=== PATIENT | female | born 1965 | race Caucasian/White ===

== ENCOUNTER 2016-07-27 15:06 | Emergency (ER) ==
[2016-07-27 15:14] VITALS: BP 167/98; TEMP 98.4; BMI 33.9
[2016-07-27] MEDS ORDERED: DUONEB NEB STA (15:20)
--- NOTE | 2016-07-27 15:50 | CT ---
EXAM: CT chest without contrast HISTORY: Cough TECHNIQUE: Multi-slice transaxial helical. Coronal and sagital reformations were performed. COMPARISON: Chest radiograph 05/28/2016 FINDINGS: The heart is normal in size. Bilateral perihilar calcified granulomas are present. Mediastinal redd cified granulomas are also present. A subcarinal lymph node is mildly enlarged measuring up to 1.2 cm in diameter. Visualized thyroid appears unremarkable. There is no axillary adenopathy. The gallbladder has been removed. Calcified granulomas are present within the spleen. The upper abdomen otherwise appears unremarkable within the confines of a noncontrast exam. Mild bilateral acromioclavicular osteoarthr itis is present. The thoracic spine appears grossly unremarkable. The minimal emphysematous changes of the bilateral upper lung zones is present. A 5 mm left lower l obe pulmonary nodule is present. Subtle patchy airspace opacities are present within the left lung base. Calcified granulomas are present within the bilateral lungs. IMPRESSION: 1. Mild patchy airspace opacities in the left lung base. Differential includes atelectasis or mild infectious infiltrates. 2. 5 mm left lower lobe pulmonary nodule. Recommend follow-up per Fleischner criteria. 3. Minimal pulmonary emphysema. 4. Nonspecific mildly enlarged subcarinal lymph node. 5. Other age-related changes as above. Comment: Fleischner Society Recommendations on Incidental Pulmonary Nodule Follow-up: -measurements are for average length and width, non solid (ground glass) or partly solid nodules may require longer follow-up. Low risk patient: (minimal or absent known risk factors) <=4mm- no follow up needed >4-6mm- 12 mo, >6-8mm- initial at 6-12 mo, then 18-24 mo if no change >8mm- follow up CT at 3, 9, 24 mo, dynamic thin slice contrast CT, PET and/or biopsy High risk patient: (history of smoking or other risk factors) <=4mm- follow up CT at 12 mo >4-6mm- initial CT at 6-12 mo then 18-24 mo if no change >6-8mm- initial CT at 3-6, 9-12 then 18-24 mo >8mm- same as low risk
[2016-07-27] MEDS ORDERED: DECADRON 4 MG/ML SDV IM STA (16:22)
[2016-07-27] MEDS ORDERED: LIDOCAINE 1 % AMP 5 ML (SUTURES) IM STA (16:22)
[2016-07-27] MEDS ORDERED: ROCEPHIN IM STA (16:22)
--- NOTE | 2016-07-27 16:37 | ED.PDOC ---
General ED Provider: Dr. BOBBY MCKEON Chief Complaint: Respiratory Complaint Stated Complaint: COUGH, CONGESTION Time Seen by Physician: 15:10 Mode of Arrival: Walk-In Information Source: Patient Exam Limitations: No limitations Primary Care Provider: [facility] Nursing and Triage Documentation Reviewed and Agree: Yes Respiratory Complaint Exam - Respiratory Complaint/Exam Symptoms Are: Still present Timing: Constant Initial Severity: Mild Current Severity: Mild Location: Throat, Chest Character: Reports: Non-productive cough Aggravating: Reports: None Alleviating: Reports: Spontaneous resolution Associated Signs and Symptoms: Denies: Rapid breathing, Dyspnea, Fever, Chills, Chest pain, Pleuritic chest pain, Wheezing, Hemoptysis, Dizziness, Calf pain, Calf swelling, Edema, URI, Nasal congestion, Hoarseness, Sinus discomfort, Vomiting, Sore throat, Weight loss, Decreased oral intake, Increased thirst, Increased appetite, Increased urination Related History: Reports: Similar episode History of Healthcare-Acquired Pneumonia: No Related Surgical History: Reports: None Pulmonary Embolism Risk Factors: None Cardiac Risk Factors: Reports: None Pseudomonas Risk Factors: Reports: None Tuberculosis Risk Factors: Reports: None Status Asthmaticus Risk Factors: Reports: None Home Oxygen Use: No Recent Stress Test: No Recent Echo/LV Function: No Current Antibiotic Use: No Current Asthma Medication Use: No Respiratory Distress: None Inadequate Respiratory Effort: No Dysphagia Present: No Stridor Present: No JVD Present: No Retractions: Not Present Review of Systems - Review Of Systems Constitutional: Reports: No symptoms Eyes: Reports: No symptoms Ears, Nose, Mouth, Throat: Reports: No symptoms Respiratory: Reports: Cough, Wheezing Cardiac: Reports: No symptoms GI: Reports: No symptoms : Reports: No symptoms Musculoskeletal: Reports: No symptoms Skin: Reports: No symptoms Neurological: Reports: No symptoms Endocrine: Reports: No symptoms Hematologic/Lymphatic: Reports: No symptoms All Other Systems: Reviewed and Negative Past Medical History - Past Medical History Previously Healthy: Yes Endocrine: Reports: None Cardiovascular: Reports: None Respiratory: Reports: None Hematological: Reports: None Gastrointestinal: Reports: None Genitourinary: Reports: None Neuro/Psych: Reports: None Musculoskeletal: Reports: None Cancer: Reports: None Last Menstrual Period: n/a - Surgical History General Surgical History: Reports: Unknown - Family History Family History: Reports: Unknown - Social History Smoking Status: Former smoker Hx Substance Use: No Alcohol Screening: Occasionally Physical Exam - Physical Exam Appearance: Well-appearing, No pain distress, Well-nourished Eyes: LENNOX, EOMI, Conjunctiva clear ENT: Ears normal, Nose normal, Oropharynx normal Respiratory: Rhonchi, Wheezes Cardiovascular: RRR, Pulses normal, No rub, No murmur GI/: Soft, Nontender, No masses, Bowel sounds normal, No Organomegaly Musculoskeletal: Normal strength, ROM intact, No edema, No calf tenderness Skin: Warm, Dry, Normal color Neurological: Sensation intact, Motor intact, Reflexes intact, Cranial nerves intact, Alert, Oriented Psychiatric: Affect appropriate, Mood appropriate Interpretation - Radiology Interpretation Radiology Interpretation By: Radiologist Radiology Results: Positive (PULMONARY NODULE) Critical Care Note - Critical Care Note Total Time (mins): 0 Course - Course Orders, Labs, Meds: Orders Category Date Time Status NEBULIZER TREATMENT Stat CARDIO 07/27/16 15:20 Completed Ceftriaxone Sodium [Rocephin] MEDS 07/27/16 16:22 Discontinued 1 gm IM ONCE STA Dexamethasone 4 mg/ml Inj [Decadron 4 mg/ml Sdv] MEDS 07/27/16 16:22 Discontinued 8 mg IM ONCE STA Ipratropium/Albuterol Neb [Duoneb] MEDS 07/27/16 15:20 Discontinued 1 vial NEB ONCE STA Lidocaine HCl/Pf [Lidocaine 1 % Amp 5 ml (Sutures)] MEDS 07/27/16 16:22 Discontinued 2.1 ml IM ONCE STA CT CHEST W/O CONTRAST Stat RADS 07/27/16 15:20 Completed Medications Discontinued Medications Generic Name Dose Route Start Last Admin Trade Name Homerq PRN Reason Stop Dose Admin Albuterol/Ipratropium 1 vial 07/27/16 15:20 07/27/16 15:35 Duoneb NEB 07/27/16 15:21 1 vial ONCE STA Administration Ceftriaxone Sodium 1 gm 07/27/16 16:22 Rocephin IM 07/27/16 16:23 ONCE STA Dexamethasone Sodium Phosphate 8 mg 07/27/16 16:22 Decadron 4 Mg/Ml Sdv IM 07/27/16 16:23 ONCE STA Lidocaine HCl 2.1 ml 07/27/16 16:22 Lidocaine 1 % Amp 5 Ml (Sutures) IM 07/27/16 16:23 ONCE STA Vital Signs: Temp Pulse Resp BP Pulse Ox 07/27/16 15:06 98.4 F 70 16 167/98 H 97 Departure - Departure Time of Disposition: 16:38 Disposition: HOME SELF-CARE Discharge Problem: Bronchitis, Pulmonary nodule Instructions: Pulmonary Nodules (ED), Acute Bronchitis (ED), Wheezing (ED), Bronchospasm (ED), Allergies (ED), How to Use a Nebulizer (ED) Condition: Good Pt referred to PMD for follow-up: No Additional Instructions: Please call your Family Physician as soon as possible to schedule a follow-up appointment. Allergies/Adverse Reactions: Allergies codeine Adverse Reaction (Verified 07/27/16 15:12) Home Medications: Ambulatory Orders Cyanocobalamin (Vitamin B-12) [Vitamin B-12] 1,000 mcg IM MONTHLY 07/27/16 Phentermine HCl 0.5 tab PO BID 07/27/16
== END 2016-07-27 17:08 | disposition home or self-care (01) ==
LOC: ED 15:06
DX: J20.9 Acute bronchitis, unspecified (principal); R91.1 Solitary pulmonary nodule
CPT/HCPCS: 94640; 96372; 99283

== ENCOUNTER 2017-01-23 12:19 | Outpatient (CLI) ==
--- NOTE | 2017-01-23 12:47 | DI ---
EXAM: Lumbar spine radiographs. HISTORY: Low back pain. COMPARISON: None available. TECHNIQUE: Three views of the lumbar spine. FINDINGS: The normal curvature and alignment are maintained. Vertebral body heights are normal. T here is severe loss of disc height at L4-5 with associated endplate osteophyte formation. Disc heig hts are otherwise normal. Mild lower lumbar facet arthropathy is present. No fracture or subluxati on identified. Sacral arcuate lines are intact. Soft tissues are unremarkable. Clips seen in the right upper quadrant the abdomen. IMPRESSION: Severe degenerative disc disease at L4-5.
== END 2017-01-23 12:20 | disposition home or self-care (01) ==
LOC: RAD 12:19
PROVIDERS: ATTEND Internal Medicine
DX: M54.16 Radiculopathy, lumbar region (principal)

== ENCOUNTER 2017-01-26 10:04 | Outpatient (CLI) ==
--- NOTE | 2017-01-26 11:05 | CT ---
EXAM: CT chest without contrast. HISTORY: Pulmonary nodule follow-up. COMPARISON: 07/27/2016. TECHNIQUE: Multiple axial images of the chest were obtained without intravenous contrast. Images w ere reformatted in the sagittal and coronal planes. FINDINGS: Calcified mediastinal and hilar lymph nodes are present. Heart size is normal. There is no pericardial effusion. Calcified nodules seen in both lungs. Noncalcified left lower lobe nodule on axial image 40 measure s 0.5 cm. Airspace opacities noted on the prior study have resolved. No pleural effusion or pneumo thorax identified. Limited images of the upper abdomen are unremarkable. Degenerative changes present in the spine. IMPRESSION: 1. Resolution of airspace opacities noted previously. 2. Stable 0.5 cm left lower lobe nodule. Follow-up in July 2017 recommended to confirm 12-flora h stability.
== END 2017-01-26 10:05 | disposition home or self-care (01) ==
LOC: RAD 10:04
PROVIDERS: ATTEND Internal Medicine
DX: R91.1 Solitary pulmonary nodule (principal)

== ENCOUNTER 2017-02-18 10:00 | Outpatient (RCR) ==
--- NOTE | 2017-02-10 16:39 | RS.OPPTEV2 ---
Date of Note: 02/09/17 Visit #: 1 Date of Evaluation: 02/09/17 Payer Source: Insurance Treatment Diagnosis: low back pain, right hip pain History of Condition/Mechanism of Injury:: Patient reports low back and right LE pain began approximately two weeks ago. Reports no known injury. Current Subjective/complaints:: Patient states pain is better now. Reports pain mainly in the right hip. States she notices it more with sitting down. 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 States she gets a "hurt tingling" in the right LE with sitting or laying in bed. Also reports that standing over two minutes bothers her low back. States she has woken up from sleep due to pain, but states she is better since she has been taking a muscle relaxant. States the right LE feels heavy at times, but it has not buckled. Treatment Side (optional): Right Medical History Surgical History: Cholecystectomy, Tonsillectomy, Smoking Status: Former smoker Hx Home Medications: Wellbutrin, meloxicam, cyclobenzaprine Patient's Goals: Her goal is to get relief of back and right hip pain. Pain Assessment - Pain Description Pain Location: low back and right hip Current Pain Intensity: 4/10 Worst Pain Intensity: 9/10 Functional Outcome Measure Oswestry LBP: 64 - G Codes & Severity Modifier G Codes & Modifier: NA Source of G Code score: NA Observation - Observation Posture: Normal Comments: Demonstrates right rotation of thoracic spine and left rotation in the lumbar spine. Gait - Gait Pattern Gait Comments: Patient ambulates without an assistive device, independently. Demonstrates no obvious gait deviations. - ROM Comments: Demonstrates ~75% of normal lumbar AROM. Bilateral LE AROM is WFL's. - Strength Comments: Right hip flexion 4 to 4+/5, DF 4-/5. All else of right LE is 4+ to 5 /5. Left LE 5/5. - Special Tests AAYUSH Test: Negative Left, Negative Right SLR Test: Negative Left, Positive Right Seated Dural Stretch Test: Negative Left, Positive Right Palpation Comments:: Patient reports tenderness throughout the lumbar paraspinals. Minimal to moderate increased muscle tone along the right lumbar paraspinals. Sensation - Sensation Right Lower Extremity: Intact/Normal Left Lower Extremity: Intact/Normal Additional Comments: Additional Comments: SLR bilateral to 40-45 degrees. - Treatment Modality: Electrical Stim Unattended Parameters/Method Applied: 4 large pads to upper lumbar to lumbosacral region, one lead to each side of lumbar spine X 10 mins up to 80 peak volts. Patient Position: Prone - Heat/Cryotherapy Treatment: Hot Pack (with Estim to lumbar spine) Interventions - Exercise/Activities/Manual Therapy Exercises/Activities: none given Manual Therapy: none - Charges Total Direct Minutes: 35 mins Total Treatment Time: 45 mins Procedures billed for this date of service:: ANNA Gamez, Estim, HP Assessment Assessment: Patient presents to therapy with a diagnosis of lumbar radiculopathy. She reports right sided low back and hip pain for the last few weeks. She demonstrates muscle guarding and tenderness in the lumbar paraspinals. SLR on the right was positive in sitting and supine. Patient will benefit from modalities reduce muscle tone and decrease pain. Symptoms may be disc related and may respond to lumbar extension exercises to reduce symptoms. Patient Education: Education of diagnosis, Body/Joint mechanics, Home Safety, Activity Modification, Education of Plan of Care Rehab Potential: Good Short Term Goals Goal #1: Patient independent in HEP. Goal to be met by: 02/24/17 Goal #2: Tenderness along lumbar paraspinals decreased to minimal. Goal to be met by: 02/24/17 Goal #3: Right LE symptoms localized to low back. Goal to be met by: 02/24/17 Goal #4: Pt to demonstrate good understanding of body mechanics and back safety. Goal to be met by: 02/24/17 Plant And Machinery Valuer Goals Goal #1: Patient knows HEP and to continue ex's to maintain functional level at D/C. Goal to be met by: 03/22/17 Goal #2: Score on Oswestry LBP scale improved to 30. 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 Goal to be met by: 03/22/17 Goal #4: Patient able to stand as needed with minimal to no back or LE pain. Goal to be met by: 03/22/17 Plan - Treatment to be Provided Procedures: Therapeutic Exercises, Therapeutic Activity, Patient Education Modalities: Electrical Stimulation, Ultrasound/Phonophoresis, Cryotherapy, Hot Packs - Treatment Plan Frequency: 2-3 X week Duration: 4 weeks ORDER # VISITS AND/OR THROUGH DATE: 03/22/17 - Treatment Code (1) Low back pain Qualifiers: Chronicity: acute Back pain laterality: right Sciatica presence: unspecified whether sciatica present Qualified Description: Acute right- sided low back pain, with sciatica presence unspecified Qualifier Code(s) : (M54.5) Low back pain (2) Lumbar radiculopathy Comments: M54.16
--- NOTE | 2017-02-13 10:31 | RS.OPPTDN ---
Subjective Date of Note: 02/13/17 Visit #: 2 Date of Evaluation: 02/09/17 Payer Source: Insurance Treatment Diagnosis: low back pain, right hip pain Current Subjective/complaints:: Patient reports first treatment helped reduce pain a little. States prone lying continues to be the most comfortable position for her. Pain Assessment - Pain Description Pain Location: low back and right hip Current Pain Intensity: 4/10 Worst Pain Intensity: 8/10 following treatment - Treatment Modality: Electrical Stim Unattended Parameters/Method Applied: [id number] HVGC to 210p.v. with 4 large pads cross current to lumbar parspinals with HP prior to EX. Patient Position: Prone - Heat/Cryotherapy Treatment: Hot Pack (with Estim ) Interventions - Exercise/Activities/Manual Therapy Exercises/Activities: [id number] Prone lying, prone on elbows, modified press-up, alt hip extension, and prone upper body lifts. Patient education of dx, spinal mechanics, and HEP. Patient given copies of HEP. Total minutes of Exercise: 12mins Manual Therapy: none HOME EXERCISE PROGRAM: Prone lying, prone on elbows, modified press-up, alt hip extension, and prone upper body lifts. - Charges Total Direct Minutes: 12mins Total Treatment Time: 32mins Procedures billed for this date of service:: HP, Estim unattended, EX Assessment: Patient with reports of flair-up of pain with treatment and exercise. Patient Education: Education of diagnosis, Body/Joint mechanics, Home Exercise Program, Home Safety, Activity Modification Patient demonstrates compliance with HEP?: Yes Short Term Goals Goal #1: Patient independent in HEP. Goal to be met by: 02/24/17 Progress towards Goal:: Progressing Goal #2: Tenderness along lumbar paraspinals decreased to minimal. Goal to be met by: 02/24/17 Goal #3: Right LE symptoms localized to low back. Goal to be met by: 02/24/17 Goal #4: Pt to demonstrate good understanding of body mechanics and back safety. Goal to be met by: 02/24/17 Halfway Goals Goal #1: Patient knows HEP and to continue ex's to maintain functional level at D/C. Goal to be met by: 03/22/17 Goal #2: Score on Oswestry LBP scale improved to 30. 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 Goal to be met by: 03/22/17 Goal #4: Patient able to stand as needed with minimal to no back or LE pain. Goal to be met by: 03/22/17 Plan PLAN OF CARE EXPIRES ON:: 03/22/17 ORDER # VISITS AND/OR THROUGH DATE: 03/22/17 PLAN: Continue Plan of Care
--- NOTE | 2017-02-18 11:14 | RS.OPPTDN ---
Subjective Date of Note: 02/18/17 Visit #: 3 Date of Evaluation: 02/09/17 Payer Source: Insurance Treatment Diagnosis: low back pain, right hip pain Current Subjective/complaints:: Patient reports an increase in back pain following last session and addition of prone extension exercises. States she witheld those exercises and only worked on gentle stretching such as knee to chest. Pain Assessment - Pain Description Pain Location: low back and right hip Current Pain Intensity: 08/29 - Treatment Modality: Electrical Stim Unattended (with Estim) Parameters/Method Applied: [id number] HVGC with 4 large pads cross current to the lumbar paraspinals with HP prior to EX. Patient Position: Sitting Comments: Changed to sitting position to increase patient comfort. - Heat/Cryotherapy Treatment: Hot Pack ([id number] with Estim ) Interventions - Exercise/Activities/Manual Therapy Exercises/Activities: [id number]. Patient assisted with SKTC, piriformis, and limited trunk rotation. Isometric hip adduction. Isometric hip flexion. Isometric gluts and abdominal sets. Advised patient to stop any exercises that increase pain. Total minutes of Exercise: 14mins Manual Therapy: none HOME EXERCISE PROGRAM: Stopped all prone exericse. Hamstring and SKTC stretch. Isometric hip add. Isometric glut and abdominal sets. - Charges Total Direct Minutes: 14mins Total Treatment Time: 35mins Procedures billed for this date of service:: HP, Estim unattended, EX Assessment: Patient reporting a signifiant flair-up with extension exercises. May benefit from gentle stretching and trunk stability exercises. 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 Patient Education: Home Exercise Program Patient demonstrates compliance with HEP?: Yes Short Term Goals Goal #1: Patient independent in HEP. Goal to be met by: 02/24/17 Progress towards Goal:: Progressing Goal #2: Tenderness along lumbar paraspinals decreased to minimal. Goal to be met by: 02/24/17 Progress towards Goal:: No Change Goal #3: Right LE symptoms localized to low back. Goal to be met by: 02/24/17 Progress towards Goal:: No Change Goal #4: Pt to demonstrate good understanding of body mechanics and back safety. Goal to be met by: 02/24/17 Data Warehouse Analyst Goals Goal #1: Patient knows HEP and to continue ex's to maintain functional level at D/C. Goal to be met by: 03/22/17 Goal #2: Score on Oswestry LBP scale improved to 30. 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 Goal to be met by: 03/22/17 Goal #4: Patient able to stand as needed with minimal to no back or LE pain. Goal to be met by: 03/22/17 Plan PLAN OF CARE EXPIRES ON:: 03/22/17 ORDER # VISITS AND/OR THROUGH DATE: 03/22/17 PLAN: Continue Plan of Care (Continue modalities and progress exercise to reduce pain and increase functional activity level.)
== END 2017-02-19 ==
PROVIDERS: ATTEND Internal Medicine
DX: M54.16 Radiculopathy, lumbar region (principal)

== ENCOUNTER 2017-09-11 14:46 | Outpatient (CLI) ==
[2016-07-27 15:15] VITALS: BMI 33.9
--- NOTE | 2017-09-11 16:24 | CT ---
EXAM: CT chest without contrast. HISTORY: Pulmonary nodule follow-up. COMPARISON: 01/26/2017, 07/27/2016. TECHNIQUE: Multiple axial images of the chest were obtained without intravenous contrast. Images we re reformatted in the sagittal and coronal planes. FINDINGS: Evaluation for lymphadenopathy is limited by lack of intravenous contrast. Calcified medi astinal and hilar lymph nodes are present. Heart size is normal. There is no pericardial effusion. Calcified granulomatous changes are present. Noncalcified 0.4 cm left lower lobe nodule on axial aureliano ge 40 is stable. No new nodules are seen. No consolidation, pleural effusion or pneumothorax detect ed. Limited images of the upper abdomen demonstrate no acute finding. No acute osseous abnormality is id entified. IMPRESSION: Stable left lower lobe micronodule since 07/30/2013, which can be considered benign given small size and greater than 12-month stability.
== END 2017-09-11 14:47 | disposition home or self-care (01) ==
LOC: RAD 14:46
PROVIDERS: ATTEND Physician Assistant
DX: R91.1 Solitary pulmonary nodule (principal)

== ENCOUNTER 2017-12-28 16:45 | Observation (INO) ==
[2017-12-28 17:32] VITALS: BMI 32.9
[2017-12-28] MEDS ORDERED: SODIUM CHLORIDE 1,000 ML IV SCH (18:30)
--- NOTE | 2017-12-28 18:44 | DI ---
EXAM: PA and lateral views of the chest. HISTORY: Chest pain. Shortness of breath. Pleurisy. FINDINGS: The bones are unremarkable. The cardiac silhouette and pulmonary vasculature are within no rmal limits. The costophrenic angles are clear. There are calcified granulomas. There is minimal l eft basilar atelectasis and/or pneumonia. Impression: Minimal left basilar atelectasis and/or pneumonia.
[2017-12-28] MEDS ORDERED: ZESTRIL ONE (18:51)
[2017-12-28] MEDS ORDERED: ROCEPHIN ONE (18:51)
[2017-12-28] MEDS: ZESTRIL PO SCH (19:25)
[2017-12-28] MEDS: ROCEPHIN 1 GM in SODIUM CHLORIDE 50 ML IV SCH (19:27)
[2017-12-28] MEDS: SOLU-MEDROL 40 MG IVP SCH ×2 (19:30→20:21)
[2017-12-28] MEDS: LOVENOX SUBCUT SCH (19:30)
[2017-12-28] MEDS: DUONEB NEB SCH (23:45)
[2017-12-29] MEDS: DUONEB NEB SCH ×4 (05:00→22:12)
[2017-12-29] MEDS: ROCEPHIN 1 GM in SODIUM CHLORIDE 50 ML IV SCH (09:17)
[2017-12-29] MEDS: ZESTRIL PO SCH (09:18)
[2017-12-29] MEDS: SOLU-MEDROL 40 MG IVP SCH ×2 (09:18→20:03)
[2017-12-29] MEDS: LOVENOX SUBCUT SCH (09:19)
[2017-12-29] MEDS ORDERED: GI COCKTAIL PO STA ×2 (16:22→22:16)
[2017-12-29] MEDS ORDERED: DEMEROL 100 MG/ML SYRINGE IVP PRN (16:22)
[2017-12-29] MEDS ORDERED: DEMEROL 50 MG/ML SYRINGE IVP PRN (16:26)
[2017-12-29] MEDS: PROTONIX PO SCH (16:38)
[2017-12-29] MEDS ORDERED: ATIVAN PO SCH (21:00)
[2017-12-30] MEDS: DUONEB NEB SCH (04:58)
[2017-12-30] MEDS: PROTONIX PO SCH (05:42)
[2017-12-30] MEDS ORDERED: PREDNISONE PO SCH (08:30)
[2017-12-30] MEDS: LOVENOX SUBCUT SCH (09:19)
[2017-12-30] MEDS: ROCEPHIN 1 GM in SODIUM CHLORIDE 50 ML IV SCH (09:19)
[2017-12-30] MEDS: ZESTRIL PO SCH (09:19)
[2017-12-30] MEDS ORDERED: PROAIR HFA IH SCH (12:00)
[2017-12-30 14:37] VITALS: BP 114/70; TEMP 97.8
--- NOTE | 2017-12-30 17:14 | PCM.HOSP ---
- Observation Care Discharge [id number] OBS Care Discharge (02643): 12/30 - Initial Observation Care [id number] High Complexity 70 Minutes (06551): 12/28 - Subsequent Observation Care [id number] 35 Minutes per Day (44830): 12/29
--- NOTE | 2017-12-31 11:10 | DS ---
DATE OF SERVICE: 12/30/17 FINAL DIAGNOSIS: 1. Pleurisy 2. Bilateral basilar pneumonia 3. Shortness of breath from pneumonia 4. Anxiety disorder 5. Obesity 6. Hyperglycemia from steroids 7. Hypertension 8. Tubal ligation 9. DJD spine DISCHARGE INSTRUCTIONS: Discharge the patient home. MEDICATIONS AT DISCHARGE: Vitamin B12 1,000mch IM monthly Keflex 500mg twice a day for 5 days Prednisone 10mg twice a day 5 days ProAir Inhaler Lisinopril 40mg PO daily NEW PRESCRIPTIONS: Keflex 500mg twice a day for 5 days Prednisone 10mg twice a day 5 days ProAir Inhaler Lisinopril 40mg PO daily DIET INSTRUCTIONS: Cardiac and healthy ACTIVITY: As much as tolerated DISEASE SPECIFIC EDUCATION: Pneumonia and pneumonia vaccination Antibiotics use and diarrhea been discussed HOSPITAL COURSE: Mirna Reyes 52 year old female came to the office complaining of coughing, shortness of breath and hurts in the chest whenever she been taking the deep breath with pleurisy and risk of pneumonia the patient was admitted to the hospital for the shortness of breath. Chest x-ray showed bibasilar pneumonia. WBC is normal and D-dimer is 407. Started on the Rocephin, steroids and breathing treatment. The patient started complaining some epigastric burning. GI cocktail was helping it. Three sets of the cardiac enzymes are negative. EKG is normal. Up and about walking and did not have any problems after giving GI cocktail. As the patient is doing fine and did not have any complications and breathing and shortness of breath has improved with antibiotic and steroid treatment with patient being discharged home. TIME SPENT: MORE THAN 65 MINUTES MTDD
--- NOTE | 2018-01-04 14:27 | PN ---
DATE OF SERVICE: 12/29/17 SUBJECTIVE: The patient was admitted from the office yesterday for pleuritic pain found to have bilateral pneumonia, still having sharp pain when she takes a deep breath. D. dimer is negative. REVIEW OF SYSTEMS: CONSTITUTIONAL: No fever, no chills. HEENT: Normal. ENDOCRINE: No weight gain, no weight loss. CVS: No angina symptoms. No CHF symptoms. No palpitations. No atypical chest pain for CAD. No shortness of breath. No PND, no orthopnea. RESPIRATORY: No cough, no hemoptysis. GI: No nausea, no vomiting. No abdominal pain. : No hematuria. No polyuria. MUSCULOSKELETAL: No joint swelling. PSYCHIATRIC: Not anxious. No depression. No suicidal thoughts. No homicidal thoughts. SKIN: Intact. No rash. PHYSICAL EXAMINATION: V/S: BP 129/73, respiratory rate 18, heart rate 101, temperature 97.1, saturation 97%. HEENT: Normocephalic, atraumatic. Mucosa dry. Pallor positive. No icterus. NECK: Supple. No JVD, no carotid bruit. No lymphadenopathy. LUNGS: Decreased with bilateral crackles. HEART: S1, S2 normal. No S3. No murmur, gallop or regurgitation. ABDOMEN: Soft, nontender. Bowel sounds active. No rigidity. No rebound or guarding. No CVA tenderness. EXTREMITIES: No cyanosis, clubbing or pedal edema. MUSCULOSKELETAL: No joint swelling. NEUROLOGIC: Awake, alert. No focal deficit. LYMPHATIC: No lymph nodes palpable. SKIN: Intact. LABS: White count 6.17, hemoglobin 13.9, hematocrit 41.7, platelet count 219. D. dimer 407, sodium 140, potassium 3.6, chloride 109, bicarb 20, BUN 10, creatinine 0.93, glucose 111. Three sets of cardiac enzymes are negative. ASSESSMENT: 1. PLEURITIC CHEST PAIN 2. BIBASILAR PNEUMONIA 3. HYPERGLYCEMIA FROM STEROIDS 4. OBESITY PLAN: 1. Demerol for pain 2. Solu-Medrol 3. Duonebs 4. Rocephin 1 gm daily 5. Daily I & O's TIME SPENT: More than 35 minutes today. MTDD
== END 2017-12-30 15:10 | disposition home or self-care (01) ==
LOC: MEDSURG B 16:45
PROVIDERS: ADMIT Emergency Medicine; ATTEND Emergency Medicine
DX: R06.02 Shortness of breath (principal); R09.1 Pleurisy; R07.81 Pleurodynia; J18.9 Pneumonia, unspecified organism; I10 Essential (primary) hypertension; E66.9 Obesity, unspecified; Z68.33 Body mass index [BMI] 33.0-33.9, adult; F41.9 Anxiety disorder, unspecified; R73.9 Hyperglycemia, unspecified; M47.9 Spondylosis, unspecified
CPT/HCPCS: 36415; 80053; 82550; 84484; 85025; 85379; 93005; 93010; 94640; 99217; 99220; 99226

== ENCOUNTER 2018-02-10 12:42 | Outpatient (CLI) | END 2018-02-10 12:43 | disposition home or self-care (01) | LOC: CAR 12:42 | PROVIDERS: ATTEND Emergency Medicine | DX: R06.02 Shortness of breath (principal) ==

== ENCOUNTER 2018-03-17 11:55 | Outpatient (CLI) | END 2018-03-17 11:56 | disposition home or self-care (01) | LOC: FCC-LAB 11:55 | PROVIDERS: ATTEND Family Medicine | DX: R73.9 Hyperglycemia, unspecified (principal) | CPT/HCPCS: 36415; 83037 ==

== ENCOUNTER 2018-04-24 12:09 | Outpatient (CLI) ==
--- NOTE | 2018-04-25 07:34 | DI ---
EXAM: Right wrist three-view HISTORY: Injury, unspecified, initial encounter COMPARISON: None FINDINGS: No definite acute fracture or dislocation. Well marginated ossification involving the uln ar styloid is likely chronic. The joints are normal. No focal soft tissue abnormality. IMPERSSION: 1. No definite acute fracture or dislocation. 2. 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
== END 2018-04-24 12:10 | disposition home or self-care (01) ==
LOC: RAD 12:09
PROVIDERS: ATTEND Nurse Practitioner Family
DX: T14.90XA Injury, unspecified, initial encounter (principal); M25.531 Pain in right wrist

== ENCOUNTER 2018-06-24 09:10 | Outpatient (CLI) | END 2018-06-24 09:11 | disposition home or self-care (01) | LOC: LAB 09:10 → FCC-LAB 09:11 | PROVIDERS: ATTEND Family Medicine | DX: Z13.220 Encounter for screening for lipoid disorders (principal) | CPT/HCPCS: 36415; 80053; 80061 ==